=== PATIENT | female | born 2000 | race Caucasian/White ===

== ENCOUNTER 2022-11-07 23:40 | Inpatient (IN) | payer OTHER ==
[2022-11-08] MEDS ORDERED: DINOPROSTONE 10 MG VAGINAL SUPPOSITORY VG ONE (01:00)
[2022-11-08 01:17] LABS: METHADONE, UR NEGATIVE (NEGATIVE); OPIATES, URI NEGATIVE (NEGATIVE); URINE AMPHETAMINES NEGATIVE (NEGATIVE); URINE BARBITURATES NEGATIVE (NEGATIVE)
[2022-11-08 01:18] LABS: PHENCYCLIDINE,URINE NEGATIVE (NEGATIVE)
[2022-11-08] MEDS: ELECTROLYTE-148 SOLN 1,000 ML IV SCH ×3 (01:30→16:11)
[2022-11-08 01:31] LABS: COCAINE, UR NEGATIVE (NEGATIVE); URINE BENZODIAZEPINES NEGATIVE (NEGATIVE)
[2022-11-08 01:42] VITALS: BMI 39.9
[2022-11-08] MEDS: PANTOPRAZOLE 40 MG TABLET PO SCH ×2 (05:59→13:30)
[2022-11-08] MEDS ORDERED: OXYTOCIN 30 UNITS in 0.9% NS 30 UNIT/500 ML INFUS.BAG IVPB SCH (08:15)
[2022-11-08] MEDS ORDERED: OXYTOCIN 30 UNITS in 0.9% NS 30 UNIT/500 ML INFUS.BAG IVPB ONE (08:51)
[2022-11-09] MEDS: ELECTROLYTE-148 SOLN 1,000 ML IV SCH ×4 (00:40→16:35)
[2022-11-09] MEDS ORDERED: PROMETHAZINE HCL 25 MG/1 ML VIAL IVPB ONE (06:10)
[2022-11-09] MEDS ORDERED: BUTORPHANOL TARTRATE 2 MG/ML VIAL IVPB ONE (06:10)
[2022-11-09] MEDS ORDERED: BUTORPHANOL TARTRATE 1 MG/ML VIAL ONE (06:15)
[2022-11-09] MEDS ORDERED: PROMETHAZINE HCL 25 MG/1 ML VIAL ONE (06:15)
[2022-11-09] MEDS ORDERED: FENTANYL/BUPIVACAINE/NS/PF - PCEA - 50 ML DISP.SYRIN EP ONE (08:41)
[2022-11-09] MEDS: PANTOPRAZOLE 40 MG TABLET PO SCH (11:10)
[2022-11-09] MEDS ORDERED: morphine SULFATE/PF 1 MG/2 ML (2cc Syringe - QUVA) EP ONE (16:21)
[2022-11-09] MEDS ORDERED: ONDANSETRON 4 MG/2 ML VIAL IVPUSH PRN (16:21)
[2022-11-09] MEDS ORDERED: IBUPROFEN 600 MG TABLET (FP) PO PRN ×2 (16:21→17:48)
[2022-11-09] MEDS ORDERED: ACETAMINOPHEN 325 MG TABLET (FP) PO PRN ×2 (16:21→17:48)
[2022-11-09] MEDS ORDERED: ceFAZolin SODIUM 1 GM VIAL ONE (16:26)
[2022-11-09] MEDS ORDERED: SODIUM CHLORIDE 0.9% P/F 10 ML VIAL IJ ONE (16:26)
[2022-11-09] MEDS ORDERED: PHENYLEPHRINE HCL 10 MG/1 ML SINGLE DOSE VIAL ONE (16:41)
[2022-11-09] MEDS ORDERED: OXYTOCIN 10 UNITS/ML VIAL ONE (16:53)
[2022-11-09] MEDS ORDERED: ONDANSETRON 4 MG/2 ML VIAL IVPB PRN ×2 (16:58→17:48)
[2022-11-09] MEDS ORDERED: oxyCODONE HCL 5 MG TABLET PO PRN ×2 (16:58→17:48)
[2022-11-09] MEDS ORDERED: IBUPROFEN 800 MG/8 ML IJ IVPB PRN ×2 (16:58→17:48)
[2022-11-09] MEDS ORDERED: ACETAMINOPHEN 1000 MG/100 ML BAG IVPB PRN (17:48)
[2022-11-09] MEDS ORDERED: SENNOSIDES/DOCUSATE COMBO (SENNA PLUS) TABLET (UD) PO PRN (17:48)
[2022-11-09] MEDS ORDERED: SIMETHICONE 80 MG TAB.CHEW (FP) PO PRN (17:48)
[2022-11-09] MEDS ORDERED: OXYTOCIN 20 UNITS in 0.9% NS 20 UNIT/1,000 ML INFUS.BAG IV SCH (18:00)
[2022-11-09] MEDS ORDERED: OXYTOCIN 20 UNITS in 0.9% NS 20 UNIT/1,000 ML INFUS.BAG IV ONE (19:14)
[2022-11-09] MEDS ORDERED: ACETAMINOPHEN INJECTION 100 ML IVPB ONE (19:14)
[2022-11-09] MEDS: OXYTOCIN 20 UNITS in 0.9% NS 20 UNIT/1,000 ML INFUS.BAG IV SCH (19:15)
[2022-11-09] MEDS: ACETAMINOPHEN 1000 MG/100 ML BAG IVPB PRN (19:16)
[2022-11-10] MEDS: ACETAMINOPHEN 1000 MG/100 ML BAG IVPB PRN (05:26)
[2022-11-10 08:18] LABS: BASO % 0.4 % (0-2.0); EOS % 1.5 % (0-4.5); HEMATOCRIT 26.6 % (32.4-45.2); HEMOGLOBIN 9.1 GM/dL (10.7-15.3); LYMPH % 18.1 % (8-40); MCH 28.7 pg (25.7-33.7); MCHC 34.1 g/dl (32.0-36.0); MEAN CELL VOLUME 84.2 fl (80-96); MEAN PLT VOLUME 10.1 fl (7.5-11.1); MONO % 7.9 % (3.8-10.2); NEUT % 72.1 % (42.8-82.8); PLATELET COUNT 143 10^3/uL (134-434); RBC 3.16 M/mm3 (3.60-5.2); RDW 16.1 % (11.6-15.6); WHITE BLOOD COUNT 10.8 K/mm3 (4.0-10.0)
[2022-11-10] MEDS: SIMETHICONE 80 MG TAB.CHEW (FP) PO PRN ×3 (09:32→20:26)
[2022-11-10] MEDS: PANTOPRAZOLE 40 MG TABLET PO SCH (09:45)
[2022-11-10] MEDS: IBUPROFEN 600 MG TABLET (FP) PO PRN ×2 (11:18→16:00)
[2022-11-10] MEDS ORDERED: BISACODYL 10 MG SUPP.RECT RC PRN ×2 (16:58→17:48)
[2022-11-10] MEDS: OXYTOCIN 20 UNITS in 0.9% NS 20 UNIT/1,000 ML INFUS.BAG IV SCH (19:51)
[2022-11-10] MEDS: SENNOSIDES/DOCUSATE COMBO (SENNA PLUS) TABLET (UD) PO PRN (20:26)
[2022-11-10] MEDS: ACETAMINOPHEN 325 MG TABLET (FP) PO PRN (22:21)
[2022-11-11] MEDS: SIMETHICONE 80 MG TAB.CHEW (FP) PO PRN ×5 (01:50→21:29)
[2022-11-11] MEDS: IBUPROFEN 600 MG TABLET (FP) PO PRN ×5 (01:50→19:55)
[2022-11-11] MEDS: PANTOPRAZOLE 40 MG TABLET PO SCH (10:42)
[2022-11-11] MEDS: ACETAMINOPHEN 325 MG TABLET (FP) PO PRN ×2 (12:43→21:30)
[2022-11-11] MEDS: SENNOSIDES/DOCUSATE COMBO (SENNA PLUS) TABLET (UD) PO PRN (19:55)
[2022-11-12] MEDS: IBUPROFEN 600 MG TABLET (FP) PO PRN ×3 (00:24→10:42)
[2022-11-12] MEDS: SIMETHICONE 80 MG TAB.CHEW (FP) PO PRN (04:21)
[2022-11-12] MEDS: ACETAMINOPHEN 325 MG TABLET (FP) PO PRN (07:21)
[2022-11-12 09:55] VITALS: BP 120/80; PULSE 80; RESP 18; TEMP 98
[2022-11-12] MEDS: PANTOPRAZOLE 40 MG TABLET PO SCH (11:22)
== END 2022-11-12 15:00 | disposition home or self-care (01) | DRG 540 ==
LOC: JLDR 23:40 → J3W 11-09 20:32
PROVIDERS: ADMIT Specialist; ATTEND Specialist
PROC: 3E0P7VZ Introduction of Hormone into Female Reproductive, Via Natural or Artificial Opening (ICD-10-PCS; 2022-11-08)
PROC: 10D00Z1 Extraction of Products of Conception, Low, Open Approach (ICD-10-PCS; principal; 2022-11-09)
DX: O62.1 Secondary uterine inertia (principal); Z3A.39 39 weeks gestation of pregnancy; Z37.0 Single live birth
CPT/HCPCS: 36415; 80053; 80307; 85025; 85027; 85610; 85730; 86780; 86850; 86900; 86901; 87389; 88307-TC

== ENCOUNTER 2024-08-17 05:05 | Inpatient (IN) | payer OTHER ==
[2024-08-17] MEDS: ELECTROLYTE-148 SOLN 500 ML IV SCH (05:35)
[2024-08-17 05:57] VITALS: BMI 42.7
[2024-08-17] MEDS: ELECTROLYTE-148 SOLN 500 ML IV ONE (06:15)
[2024-08-17] MEDS ORDERED: TERBUTALINE SULFATE 1 MG/1 ML VIAL SQ ONE (06:16)
[2024-08-17] MEDS: TERBUTALINE SULFATE 1 MG/1 ML VIAL SQ ONE (06:21)
[2024-08-17] MEDS: ELECTROLYTE-148 SOLN 1,000 ML IV SCH (06:45)
[2024-08-17] MEDS: CITRIC ACID/SODIUM CITRATE 30 ML UNIT-DOSE CUP PO ONE (07:40)
[2024-08-17] MEDS ORDERED: FENTANYL CITRATE/PF 50 MCG/ML VIAL ONE (07:53)
[2024-08-17] MEDS ORDERED: morphine SULFATE/PF 1 MG/2 ML (2cc Syringe - QUVA) ONE (07:53)
[2024-08-17] MEDS ORDERED: OXYTOCIN 30 UNITS in 0.9% NS 30 UNIT/500 ML INFUS.BAG IVPB ONE (08:08)
[2024-08-17] MEDS ORDERED: OXYTOCIN 10 UNITS/ML VIAL ONE (08:36)
[2024-08-17] MEDS: OXYTOCIN 20 UNITS in 0.9% NS 20 UNIT/1,000 ML INFUS.BAG IV SCH (08:37)
[2024-08-17] MEDS ORDERED: ONDANSETRON 4 MG/2 ML VIAL IVPB PRN (09:21)
[2024-08-17] MEDS ORDERED: IBUPROFEN 600 MG TABLET (FP) PO PRN ×2 (09:21→09:38)
[2024-08-17] MEDS ORDERED: ACETAMINOPHEN INJECTION 100 ML ONE (09:48)
[2024-08-17] MEDS: ACETAMINOPHEN 1000 MG/100 ML BAG IVPB PRN (09:50)
[2024-08-17] MEDS: PRENATAL VITAMINS W/ FOLIC ACID TABLET (FP) PO SCH (09:56)
[2024-08-17] MEDS ORDERED: OXYTOCIN 20 UNITS in 0.9% NS 20 UNIT/1,000 ML INFUS.BAG IV ONE (11:42)
[2024-08-17] MEDS: IBUPROFEN (CALDOLOR) 800 MG/200 ML PREMIX BAGS IVPB PRN (15:08)
[2024-08-17] MEDS: SENNOSIDES/DOCUSATE COMBO (SENNA PLUS) TABLET (UD) PO SCH (21:43)
[2024-08-17] MEDS: ACETAMINOPHEN 325 MG TABLET (FP) PO PRN (22:45)
[2024-08-18] MEDS: oxyCODONE HCL 5 MG TABLET PO PRN ×2 (04:36→11:49)
[2024-08-18] MEDS: SIMETHICONE 80 MG TAB.CHEW (FP) PO PRN (04:36)
[2024-08-18 07:25] LABS: ABSOLUTE IMMATURE GRANULOCYTES 0.07 x10^3/uL (0.0-0.031); BASOPHILS # 0.05 x10^3/uL (0.01-0.08); EOSINOPHIL % 2.4 % (0.7-5.8); EOSINOPHILS # 0.27 x10^3/uL (0.04-0.36); HEMATOCRIT 31.1 % (34.1-44.9); HEMOGLOBIN 9.5 g/dL (11.2-15.7); MCHC 30.5 g/dl (32.2-35.5); MEAN CELL VOLUME 87.1 fl (79.4-94.8); MEAN PLT VOLUME 11.7 fl (9.4-12.3); MONOCYTE % 6.3 % (4.7-12.5); PLATELET COUNT 175 x10^3/uL (182-369); RDW 14.8 % (12.1-16.5)
[2024-08-18] MEDS: IBUPROFEN 600 MG TABLET (FP) PO PRN (07:42)
[2024-08-18] MEDS ORDERED: BISACODYL 10 MG SUPP.RECT RC PRN (09:21)
[2024-08-18] MEDS: ACETAMINOPHEN 325 MG TABLET (FP) PO PRN (16:32)
[2024-08-19 10:14] VITALS: RESP 18
[2024-08-19] MEDS: ACETAMINOPHEN 500 MG TABLET (FP) PO PRN (16:05)
[2024-08-19] MEDS: ENOXAPARIN NA (PORCINE) 40 MG/0.4 ML DISP.SYRIN SQ SCH (17:42)
[2024-08-19] MEDS: IBUPROFEN 600 MG TABLET (FP) PO PRN (17:42)
[2024-08-20 12:42] VITALS: BP 122/81; PULSE 79; TEMP 98.6
== END 2024-08-20 13:30 | disposition home or self-care (01) | DRG 540 ==
LOC: JLDR 05:05 → J3W 11:45
PROVIDERS: ADMIT Specialist; ATTEND Specialist
PROC: 10D00Z1 Extraction of Products of Conception, Low, Open Approach (ICD-10-PCS; principal; 2024-08-17)
DX: O34.211 Maternal care for low transverse scar from previous cesarean delivery (principal); Z3A.39 39 weeks gestation of pregnancy; Z37.0 Single live birth
CPT/HCPCS: 36415; 59025; 59409; 85025; 86850; 86900; 86901; 88307-TC